=== PATIENT | male | born 1980 | race Caucasian/White ===

== ENCOUNTER 2020-03-05 10:01 | Emergency (ER) | payer SELFPAY ==
[2020-03-05] MEDS ORDERED: Sodium Chloride 0.9% 10 ML Syringe FLUSH PRN (10:45)
--- NOTE | 2020-03-05 12:13 | EDM.PDOC ---
ED HPI GENERAL MEDICAL PROBLEM - General Chief Complaint: General Stated Complaint: FEELS EXHAUSTED AND NOT HISSELF Time Seen by Provider: 03/05/20 10:17 Source of Information: Reports: Patient History Limitations: Reports: No Limitations - History of Present Illness INITIAL COMMENTS - FREE TEXT/NARRATIVE: The patient presents with shortness of breath, cough, and generalized weakness. He says this has been going on for about a week. He has no fever or chills. He has no chest pain or abdominal pain. He has no appetite. He has no nausea or vomiting. He does have some diarrhea. He has no health problems and he does not smoke. He says when he takes a deep breath that triggers him to cough. He is short of breath with exertion. He has no medical problems. Onset: Gradual Duration: Week(s): Severity: Moderate Improves with: Reports: None Worsens with: Reports: None Associated Symptoms: Reports: Cough, Shortness of Breath. Denies: Chest Pain, Diaphoresis, Fever/Chills, Headaches, Nausea/Vomiting Chest Pain Score (Numeric/FACES): 4 - Related Data Allergies Allergy/AdvReac Type Severity Reaction Status Date / Time No Known Allergies Allergy Verified 03/05/20 10:19 Home Meds: Home Meds . [No Known Home Meds] 03/05/20 [History] ED ROS GENERAL - Review of Systems Review Of Systems: See Below Constitutional: Reports: No Symptoms HEENT: Reports: No Symptoms Respiratory: Reports: Shortness of Breath, Cough Cardiovascular: Reports: No Symptoms Endocrine: Reports: No Symptoms GI/Abdominal: Reports: Diarrhea. Denies: Abdominal Pain, Nausea, Vomiting : Reports: No Symptoms ED EXAM, GENERAL - Physical Exam Exam: See Below Exam Limited By: No Limitations General Appearance: Alert, No Apparent Distress Ears: Normal External Exam Nose: Normal Inspection Throat/Mouth: Normal Inspection Head: Atraumatic, Normocephalic Neck: Normal Inspection Respiratory/Chest: No Respiratory Distress, Lungs Clear, Normal Breath Sounds Cardiovascular: Regular Rate, Rhythm, No Edema, No Murmur GI/Abdominal: Soft, Non-Tender, No Organomegaly, No Mass Back Exam: Normal Inspection Extremities: Normal Inspection EKG INTERPRETATION EKG Date: 03/05/20 Time: 11:17 Rhythm: NSR Rate (Beats/Min): 90 [place]ugh: LAD-Left Fitzhugh Deviation P-Wave: Present QRS: Normal ST-T: Normal QT: Normal EKG Interpretation Comments: Q waves in the inferior leads Course - Vital Signs Last Recorded V/S: Last Vital Signs Temp 97.7 F 03/05/20 10:16 Pulse 92 03/05/20 10:16 Resp 19 03/05/20 10:16 BP 149/96 H 03/05/20 10:16 Pulse Ox 92 L 03/05/20 10:16 - Orders/Labs/Meds Orders: Active Orders 24 hr Category Date Time Status Cardiac Monitoring [RC] . DIRECTED Care 03/05/20 10:45 Active EKG Documentation Completion [RC] STAT Care 03/05/20 10:45 Active Peripheral IV Care [RC] . DIRECTED Care 03/05/20 10:45 Active Chest 1V Frontal [CR] Stat Exams 03/05/20 10:46 Taken CORONAVIRUS COVID-19 PCR PHL Stat Lab 03/05/20 10:46 Ordered FERRITIN [CHEM] Stat Lab 03/05/20 10:59 Received LACTATE DEHYDROGENASE,LDH [CHEM] Stat Lab 03/05/20 10:59 Received Sodium Chloride 0.9% [Saline Flush] Med 03/05/20 10:45 Active 10 ml FLUSH ASDIRECTED PRN Peripheral IV Insertion Adult [OM.PC] Stat Oth 03/05/20 10:45 Ordered Medication Orders Sodium Chloride (Saline Flush) 10 ml FLUSH ASDIRECTED PRN PRN Reason: Keep Vein Open Labs: Laboratory Tests 03/05/20 03/05/20 03/05/20 Range/Units 10:59 10:59 10:59 WBC 4.30 (4.23-9.07) K/mm3 RBC 4.98 (4.63-6.08) M/mm3 Hgb 14.2 (13.7-17.5) gm/dl Hct 41.5 (40.1-51.0) % MCV 83.3 (79.0-92.2) fl MCH 28.5 (25.7-32.2) pg MCHC 34.2 (32.2-35.5) g/dl RDW Std Deviation 40.1 (35.1-43.9) fL Plt Count 146 L (163-337) K/mm3 MPV 9.8 (9.4-12.3) fl Neut % (Auto) 69.1 H (34.0-67.9) % Lymph % (Auto) 25.1 (21.8-53.1) % [place] % (Auto) 5.1 L (5.3-12.2) % Eos % (Auto) 0 L (0.8-7.0) Baso % (Auto) 0.2 (0.1-1.2) % Neut # (Auto) 2.97 (1.78-5.38) K/mm3 Lymph # (Auto) 1.08 L (1.32-3.57) K/mm3 [place] # (Auto) 0.22 L (0.30-0.82) K/mm3 Eos # (Auto) 0.00 L (0.04-0.54) K/mm3 Baso # (Auto) 0.01 (0.01-0.08) K/mm3 D-Dimer, Quantitative 1.01 H (0.19-0.50) mg/L Sodium 139 (136-145) mEq/L Potassium 3.8 (3.5-5.1) mEq/L Chloride 101 (98-107) mEq/L Carbon Dioxide 29 (21-32) mEq/L Anion Gap 12.8 (5-15) BUN 12 (7-18) mg/dL Creatinine 0.9 (0.7-1.3) mg/dL Est Cr Clr Drug Dosing 108.72 mL/min Estimated GFR (MDRD) > 60 (>60) mL/min BUN/Creatinine Ratio 13.3 L (14-18) Glucose 109 H (74-106) mg/dL Calcium 8.3 L (8.5-10.1) mg/dL Magnesium 2.3 (1.8-2.4) mg/dl Total Bilirubin 0.8 (0.2-1.0) mg/dL AST 77 H (15-37) U/L ALT 96 H (16-63) U/L Alkaline Phosphatase 53 (46-116) U/L Troponin I < 0.017 (0.00-0.056) ng/mL Total Protein 7.5 (6.4-8.2) g/dl Albumin 3.4 (3.4-5.0) g/dl Globulin 4.1 gm/dL Albumin/Globulin Ratio 0.8 L (1-2) TSH 3rd Generation 2.008 (0.358-3.74) uIU/mL Meds: Medications Generic Name Dose Route Start Last Admin Trade Name Kaylie PRN Reason Stop Dose Admin Sodium Chloride 10 ml 03/05/20 10:45 Saline Flush FLUSH ASDIRECTED PRN Keep Vein Open - Re-Assessments/Exams Free Text/Narrative Re-Assessment/Exam: 03/05/20 12:13 I ordered an EKG, CXR and labs. His EKG shows a NSR with no acute changes. His CXR shows bilateral viral pneumonia. His CBC looks good. His AST is elevated at 77. His ALT is elevated at 96. His troponin is negative. His TSH is normal. 03/05/20 12:42 His D-dimer is elevated at 1.01. That is consistent with COVID 19. I do not need to do a CT angio. I will discharge him home with symptomatic care. Departure - Departure Time of Disposition: 12:45 Disposition: Home, Self-Care 01 Condition: Good Clinical Impression: COVID-19, Pneumonia due to COVID-19 virus - Discharge Information *PRESCRIPTION DRUG MONITORING PROGRAM REVIEWED*: Not Applicable *COPY OF PRESCRIPTION DRUG MONITORING REPORT IN PATIENT EDWARD: Not Applicable Referrals: PCP,Not In Area [Primary Care Provider] - Kurt Sommer NP [Nurse Practitioner] - 1 Week Forms: ED Department Discharge, ED Return to Work/School Form Additional Instructions: Take tylenol or motrin for any fever or pain. Use the albuterol inhaler 2 puffs every 6 hours while awake. Quarantine for about 2 weeks. Please return if you are worse. Sepsis Event Note (ED) - Evaluation Sepsis Screening Result: No Definite Risk - Focused Exam Vital Signs: Vital Signs Temp Pulse Resp BP Pulse Ox 03/05/20 10:16 97.7 F 92 19 149/96 H 92 L - My Orders Last 24 Hours: My Active Orders 03/05/20 10:45 Cardiac Monitoring [RC] . DIRECTED EKG Documentation Completion [RC] STAT Peripheral IV Care [RC] . DIRECTED Sodium Chloride 0.9% [Saline Flush] 10 ml FLUSH ASDIRECTED PRN Peripheral IV Insertion Adult [OM.PC] Stat 03/05/20 10:46 Chest 1V Frontal [CR] Stat CORONAVIRUS COVID-19 PCR PHL Stat 03/05/20 10:59 FERRITIN [CHEM] Stat LACTATE DEHYDROGENASE,LDH [CHEM] Stat - Assessment/Plan Last 24 Hours: My Active Orders 03/05/20 10:45 Cardiac Monitoring [RC] . DIRECTED EKG Documentation Completion [RC] STAT Peripheral IV Care [RC] . DIRECTED Sodium Chloride 0.9% [Saline Flush] 10 ml FLUSH ASDIRECTED PRN Peripheral IV Insertion Adult [OM.PC] Stat 03/05/20 10:46 Chest 1V Frontal [CR] Stat CORONAVIRUS COVID-19 PCR PHL Stat 03/05/20 10:59 FERRITIN [CHEM] Stat LACTATE DEHYDROGENASE,LDH [CHEM] Stat
[2020-03-05] MEDS ORDERED: Albuterol 6.7 GM Inhaler INH ONE (12:44)
--- NOTE | 2020-03-06 11:11 | CR ---
Chest: Portable view of the chest was obtained. Comparison: No prior chest imaging. Heart size appears slightly prominent but felt to be accentuated in portable technique. Upper mediastinum is normal. Diffuse increased density within the chest is seen. Findings raise the possibility of diffuse pneumonia with viral pneumonia being high within the differential. Impression: 1. Diffuse increased density within both lungs as noted above. Diagnostic code #3 This report was dictated in MDT
== END 2020-03-05 13:03 | disposition home or self-care (01) ==
LOC: JD.ED 10:01
DX: U07.1 COVID-19 (principal); J12.89 Other viral pneumonia
CPT/HCPCS: 36415; 71045; 80053; 82728; 83615; 83735; 84443; 84484; 85025; 85379; 87635; 93005; 99285; A9270; U0002